=== PATIENT | female | born 1995 | race Caucasian/White ===

== ENCOUNTER 2019-11-24 13:17 | Inpatient (IN) | payer OTHER ==
--- NOTE | 2019-11-24 13:54 | BHS.RME ---
Substance Use & Tx History - Substance Use History Opiates (Heroin) Substance amount: 1 bundle Frequency of use: Daily Substance route: Inhalation (ex: sniffing or snorting) Date of Last Use: 11/23/19 Alcohol Substance amount: 3 strawberitas daily, ~3 ounces tequilla. Vodka 4 ounces 2 days per week Frequency of use: Daily Substance route: Oral Date of Last Use: 11/24/19 Benzodiazepines Substance amount: Xanax 2 x 2 mg Frequency of use: Daily Substance route: Oral Date of Last Use: 11/20/19 Cocaine (Crack) Substance amount: 1 gram Frequency of use: Less than 3 times per week Substance route: Smoking Date of Last Use: 10/26/19 Cocaine (Powder) Frequency of use: Less than 5 times a year Substance route: Injection (ex: intravenous or skin popping) Date of Last Use: 05/28/19 Physical/Psych/Mental Status - Behavior General Behavior: Increased activity (restlessness, agitation) Eye Contact: Decreased - Cooperativeness Cooperativeness: Cooperative - Thinking Thought Processes: Tight Thought content: Future oriented - Physical Health Problems Is patient presently having any pain?: No Does patient presently have any injuries (include location): No Does patient currently have a fever: No Is patient : No COWS - Scale Resting Pulse: 1= [place] 81-100 Sweatin=Flushed/Facial Moisture Restless Observation: 1= Difficult to Sit Still Pupil Size: 2= Moderately Dilated Bone or Joint Aches: 0= None Runny Nose/ Eye Tearin= Runny Nose/Eyes GI Upset > 30mins: 2= Nausea/Diarrhea Tremor Observation: 2= Slight Tremor Visible Yawning Observation: 0= None Anxiety or Irritability: 1=Feels Anxious/Irritable Goose Flesh Skin: 0=Smooth Skin COWS Score: 13 CIWA Nausea/Vomitin Muscle Tremors: 4-Moderate,w/Arms Extend Anxiety: 3 Agitation: 1-Slight > Activity Paroxysmal Sweats: 4-Forehead w/Sweat Beads Orientation: 0-Oriented Tacttile Disturbances: 0-None Auditory Disturbances: 1-Very Mild Visual Disturbances: 2-Mild Sensitivity Headache: 1-Very Mild CIWA-Ar Total Score: 19
[2019-11-24 14:41] VITALS: BMI 30.5
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
[2019-11-24] MEDS ORDERED: MENTHOL/PHENOL 1 EACH UD MM PRN (15:08)
[2019-11-24] MEDS ORDERED: IBUPROFEN 400 MG TABLET (FP) PO PRN (15:08)
[2019-11-24] MEDS ORDERED: ONDANSETRON *ODT* 4 MG TABLET SL ONE (15:08)
[2019-11-24] MEDS ORDERED: MAG HYDROX/AL HYDROX/SIMETH 30 ML UNIT-DOSE CUP PO PRN (15:08)
[2019-11-24] MEDS ORDERED: ACETAMINOPHEN 325 MG TABLET (FP) PO PRN ×2 (15:08)
[2019-11-24] MEDS ORDERED: MAGNESIUM CITRATE 300 ML BOTTLE PO PRN (15:08)
[2019-11-24] MEDS ORDERED: BISMUTH SUBSALICYLATE 262 MG/15 ML BTL PO PRN (15:08)
[2019-11-24] MEDS ORDERED: METHADONE HCL 10 MG TABLET (FOR DETOX USE ONLY) PO ONE (15:08)
[2019-11-24] MEDS ORDERED: chlordiazePOXIDE HCL 25 MG CAPSULE PO PRN (15:08)
[2019-11-24] MEDS ORDERED: MAGNESIUM HYDROX 2400MG/30ML ORAL SUSPENSION 30 ML CUP PO PRN (15:08)
[2019-11-24] MEDS: NICOTINE 21 MG/24 HOURS TOPICAL PATCH TD SCH (16:02)
[2019-11-24] MEDS: chlordiazePOXIDE HCL 25 MG CAPSULE PO SCH ×2 (16:46→22:19)
[2019-11-24] MEDS: NICOTINE POLACRILEX 2 MG GUM BUC PRN (16:48)
[2019-11-24] MEDS: hydrOXYzine PAMOATE 25 MG CAPSULE (FP) PO SCH ×2 (18:18→22:19)
[2019-11-24] MEDS: THIAMINE HCL 100 MG TABLET (FP) PO SCH (22:19)
[2019-11-24] MEDS: MELATONIN 5 MG TABLETS PO SCH (22:19)
[2019-11-25] MEDS: chlordiazePOXIDE HCL 25 MG CAPSULE PO SCH ×4 (06:27→22:13)
[2019-11-25] MEDS: hydrOXYzine PAMOATE 25 MG CAPSULE (FP) PO SCH ×2 (06:27→10:23)
[2019-11-25] MEDS ORDERED: METHADONE HCL 5 MG TABLET (FOR DETOX USE ONLY) ONE (09:22)
[2019-11-25] MEDS ORDERED: METHADONE HCL 10 MG TABLET (FOR DETOX USE ONLY) ONE (09:23)
[2019-11-25] MEDS ORDERED: METHADONE (DETOX) 20 MG, METHADONE (DETOX) 5 MG PO ONE (10:00)
[2019-11-25] MEDS: PRENATAL VITAMINS W/ FOLIC ACID TABLET (FP) PO SCH (10:22)
[2019-11-25 10:23] LABS: HEMATOCRIT 42.4 % (32.4-45.2); HEMOGLOBIN 14.2 GM/dL (10.7-15.3); MCHC 33.5 g/dl (32.0-36.0); MEAN CELL VOLUME 89.6 fl (80-96); PLATELET COUNT 325 K/MM3 (134-434); RBC 4.73 M/mm3 (3.60-5.2); RDW 15.1 % (11.6-15.6); WHITE BLOOD COUNT 6.2 K/mm3 (4.0-10.0)
[2019-11-25] MEDS: NICOTINE POLACRILEX 2 MG GUM BUC PRN ×3 (10:24→17:53)
[2019-11-25] MEDS: NICOTINE 21 MG/24 HOURS TOPICAL PATCH TD SCH (10:24)
[2019-11-25 10:28] LABS: ALBUMIN 3.4 g/dl (3.4-5.0); ALK PHOS 82 U/L (45-117); ANION GAP 7 MMOL/L (8-16); BILIRUBIN,TOTAL < 0.1 mg/dL (0.2-1); BLOOD UREA NITROGEN 13.3 mg/dL (7-18); CALCIUM 8.9 mg/dL (8.5-10.1); CHLORIDE 105 mmol/L (98-107); CO2 29 mmol/L (21-32); CREATININE 0.8 mg/dL (0.55-1.3); GLUCOSE,RANDOM 61 mg/dL (74-106); SGOT/AST 11 U/L (15-37); SGPT/ALT 16 U/L (13-61); SODIUM 141 mmol/L (136-145)
--- NOTE | 2019-11-25 10:46 | PN ---
[facility] CIWA - CIWA Score Nausea/Vomitin-No Nausea/No Vomiting Muscle Tremors: 3 Anxiety: 3 Agitation: 3 Paroxysmal Sweats: 3 Orientation: 0-Oriented Tacttile Disturbances: 0-None Auditory Disturbances: 0-None Visual Disturbances: 0-None Headache: 0-None Present CIWA-Ar Total Score: 12 [facility] COWS - Scale Resting Pulse: 1= [place] 81-100 Sweatin= Chills/Flushing Restless Observation: 1= Difficult to Sit Still Pupil Size: 0= Normal to Room Light Bone or Joint Aches: 1= Mild Discomfort Runny Nose/ Eye Tearin= Runny Nose/Eyes GI Upset > 30mins: 0= None Tremor Observation of Outstretched Hands: 2= Slight Tremor Visible Yawning Observation: 1= 1-2x During Session Anxiety or Irritability: 2=Irritable/Anxious Goose Flesh Skin: 0=Smooth Skin COWS Score: 11 [facility] Progress Note (SOAP) Subjective: sweats shakes interrupted sleep anxious Objective: 11/25/19 10:45 Vital Signs Temperature 97.9 F 11/25/19 08:34 Pulse Rate 84 11/25/19 08:34 Respiratory Rate 18 11/25/19 08:34 Blood Pressure 114/67 11/25/19 08:34 O2 Sat by Pulse Oximetry (%) Laboratory Tests 11/24/19 11/25/19 11/25/19 14:29 07:30 07:30 WBC 6.2 RBC 4.73 Hgb 14.2 Hct 42.4 MCV 89.6 MCH 30.0 MCHC 33.5 RDW 15.1 Plt Count 325 MPV 8.0 Sodium 141 Potassium 4.0 Chloride 105 Carbon Dioxide 29 Anion Gap 7 L BUN 13.3 Creatinine 0.8 Est GFR (CKD-EPI)AfAm 120.44 Est GFR (CKD-EPI)NonAf 103.92 Random Glucose 61 L Calcium 8.9 Total Bilirubin < 0.1 L AST 11 L ALT 16 Alkaline Phosphatase 82 Total Protein 7.0 Albumin 3.4 POC Urine HCG, Qual Negative aaox3 ambulating no acute distress Assessment: 11/25/19 10:46 withdrawals Plan: continue detox increase fluids
[2019-11-25] MEDS: hydrOXYzine PAMOATE 25 MG CAPSULE (FP) PO PRN (13:36)
[2019-11-25] MEDS: THIAMINE HCL 100 MG TABLET (FP) PO SCH (21:35)
[2019-11-25] MEDS: cloNIDine HCL 0.1 MG TABLET PO PRN ×2 (21:37→22:09)
[2019-11-25] MEDS: MELATONIN 5 MG TABLETS PO SCH (22:09)
[2019-11-25] MEDS: ONDANSETRON *ODT* 4 MG TABLET SL PRN (22:30)
[2019-11-26] MEDS: chlordiazePOXIDE HCL 25 MG CAPSULE PO SCH ×4 (06:00→22:08)
[2019-11-26] MEDS ORDERED: METHADONE HCL 10 MG TABLET (FOR DETOX USE ONLY) PO ONE (10:00)
[2019-11-26] MEDS: PRENATAL VITAMINS W/ FOLIC ACID TABLET (FP) PO SCH (10:34)
[2019-11-26] MEDS: NICOTINE POLACRILEX 2 MG GUM BUC PRN ×4 (10:35→22:10)
[2019-11-26] MEDS: NICOTINE 21 MG/24 HOURS TOPICAL PATCH TD SCH (10:35)
[2019-11-26] MEDS: ONDANSETRON *ODT* 4 MG TABLET SL PRN (12:44)
[2019-11-26] MEDS: hydrOXYzine PAMOATE 25 MG CAPSULE (FP) PO PRN (12:44)
--- NOTE | 2019-11-26 12:53 | PN ---
[facility] CIWA - CIWA Score Nausea/Vomitin-No Nausea/No Vomiting Muscle Tremors: 3 Anxiety: 2 Agitation: 2 Paroxysmal Sweats: 3 Orientation: 0-Oriented Tacttile Disturbances: 0-None Auditory Disturbances: 0-None Visual Disturbances: 0-None Headache: 0-None Present CIWA-Ar Total Score: 10 [facility] COWS - Scale Resting Pulse: 1= [place] 81-100 Sweatin= Chills/Flushing Restless Observation: 1= Difficult to Sit Still Pupil Size: 0= Normal to Room Light Bone or Joint Aches: 1= Mild Discomfort Runny Nose/ Eye Tearin= None GI Upset > 30mins: 0= None Tremor Observation of Outstretched Hands: 1= Tremor [place], Not Seen Yawning Observation: 1= 1-2x During Session Anxiety or Irritability: 2=Irritable/Anxious Goose Flesh Skin: 0=Smooth Skin COWS Score: 8 [facility] Progress Note (SOAP) Subjective: sweats nausea hot/cold chills body aches dry skin Objective: 11/26/19 12:54 Vital Signs Temperature 97.9 F 11/26/19 08:41 Pulse Rate 87 11/26/19 08:41 Respiratory Rate 17 11/26/19 08:41 Blood Pressure 128/71 11/26/19 08:41 O2 Sat by Pulse Oximetry (%) Laboratory Tests 11/24/19 11/25/19 11/25/19 14:29 07:30 07:30 WBC 6.2 RBC 4.73 Hgb 14.2 Hct 42.4 MCV 89.6 MCH 30.0 MCHC 33.5 RDW 15.1 Plt Count 325 MPV 8.0 Sodium 141 Potassium 4.0 Chloride 105 Carbon Dioxide 29 Anion Gap 7 L BUN 13.3 Creatinine 0.8 Est GFR (CKD-EPI)AfAm 120.44 Est GFR (CKD-EPI)NonAf 103.92 Random Glucose 61 L Calcium 8.9 Total Bilirubin < 0.1 L AST 11 L ALT 16 Alkaline Phosphatase 82 Total Protein 7.0 Albumin 3.4 POC Urine HCG, Qual Negative RPR Titer 11/25/19 07:30 WBC RBC Hgb Hct MCV MCH MCHC RDW Plt Count MPV Sodium Potassium Chloride Carbon Dioxide Anion Gap BUN Creatinine Est GFR (CKD-EPI)AfAm Est GFR (CKD-EPI)NonAf Random Glucose Calcium Total Bilirubin AST ALT Alkaline Phosphatase Total Protein Albumin POC Urine HCG, Qual RPR Titer Nonreactive aaox3 ambulating no acute distress Assessment: 11/26/19 12:55 withdrawals Plan: continue detox zofran sl prn aveeno soap
[2019-11-26] MEDS ORDERED: COLLOIDAL OATMEAL 1 BAR EACH TP ONE (14:00)
[2019-11-26] MEDS: THIAMINE HCL 100 MG TABLET (FP) PO SCH (22:08)
[2019-11-26] MEDS: MELATONIN 5 MG TABLETS PO SCH (22:08)
[2019-11-26] MEDS: METHOCARBAMOL 500 MG TABLET PO PRN (22:08)
[2019-11-27] MEDS ORDERED: chlordiazePOXIDE HCL 10 MG CAPSULE PO PRN
[2019-11-27] MEDS: chlordiazePOXIDE HCL 10 MG CAPSULE PO SCH ×4 (07:57→22:11)
[2019-11-27] MEDS ORDERED: METHADONE HCL 10 MG TABLET (FOR DETOX USE ONLY) ONE (09:29)
[2019-11-27] MEDS ORDERED: METHADONE HCL 5 MG TABLET (FOR DETOX USE ONLY) ONE (09:29)
[2019-11-27] MEDS ORDERED: METHADONE (DETOX) 10 MG, METHADONE (DETOX) 5 MG PO ONE (10:00)
--- NOTE | 2019-11-27 10:32 | PN ---
[facility] CIWA - CIWA Score Nausea/Vomitin-No Nausea/No Vomiting Muscle Tremors: 1-None Visible, but [place] Anxiety: 1-Mildly Anxious Agitation: 1-Slight > Activity Paroxysmal Sweats: 1-Minimal Palms Moist Orientation: 0-Oriented Tacttile Disturbances: 0-None Auditory Disturbances: 0-None Visual Disturbances: 0-None Headache: 0-None Present CIWA-Ar Total Score: 4 S COWS - Scale Resting Pulse: 1= [place] 81-100 Sweatin= Chills/Flushing Restless Observation: 0= Sits Still Pupil Size: 0= Normal to Room Light Bone or Joint Aches: 1= Mild Discomfort Runny Nose/ Eye Tearin= None GI Upset > 30mins: 0= None Tremor Observation of Outstretched Hands: 1= Tremor [place], Not Seen Yawning Observation: 0= None Anxiety or Irritability: 1=Feels Anxious/Irritable Goose Flesh Skin: 0=Smooth Skin COWS Score: 5 [facility] Progress Note (SOAP) Subjective: anxiety interrupted sleep Objective: 11/27/19 10:32 Vital Signs Temperature 97.7 F 11/27/19 05:00 Pulse Rate 67 11/27/19 05:00 Respiratory Rate 16 11/27/19 05:00 Blood Pressure 114/71 11/27/19 05:00 O2 Sat by Pulse Oximetry (%) aaox3 ambulating no acute distress Assessment: 11/27/19 10:32 mild withdrawals Plan: continue detox
[2019-11-27] MEDS: PRENATAL VITAMINS W/ FOLIC ACID TABLET (FP) PO SCH (10:44)
[2019-11-27] MEDS: NICOTINE POLACRILEX 2 MG GUM BUC PRN ×5 (10:44→22:13)
[2019-11-27] MEDS: NICOTINE 21 MG/24 HOURS TOPICAL PATCH TD SCH (10:44)
[2019-11-27] MEDS: METHOCARBAMOL 500 MG TABLET PO PRN ×2 (10:47→20:10)
[2019-11-27] MEDS: hydrOXYzine PAMOATE 25 MG CAPSULE (FP) PO PRN ×2 (12:55→22:11)
[2019-11-27] MEDS: MELATONIN 5 MG TABLETS PO SCH (22:11)
[2019-11-27] MEDS: THIAMINE HCL 100 MG TABLET (FP) PO SCH (22:11)
[2019-11-28] MEDS ORDERED: chlordiazePOXIDE HCL 10 MG CAPSULE PO SCH (05:00)
[2019-11-28] MEDS: NICOTINE POLACRILEX 2 MG GUM BUC PRN (06:03)
[2019-11-28] MEDS: METHOCARBAMOL 500 MG TABLET PO PRN (06:03)
[2019-11-28] MEDS: hydrOXYzine PAMOATE 25 MG CAPSULE (FP) PO PRN (06:03)
[2019-11-28] MEDS ORDERED: METHADONE HCL 10 MG TABLET (FOR DETOX USE ONLY) PO ONE (10:00)
[2019-11-28 11:38] VITALS: BP 132/75; PULSE 98; TEMP 98.1
[2019-11-29] MEDS ORDERED: chlordiazePOXIDE HCL 10 MG CAPSULE PO ONE (05:00)
[2019-11-29] MEDS ORDERED: METHADONE HCL 5 MG TABLET (FOR DETOX USE ONLY) PO ONE (06:00)
== END 2019-11-28 10:16 | disposition home or self-care (01) | DRG 773 ==
LOC: YASAS 13:17 → Y6N 14:53
PROVIDERS: ADMIT Allergy & Immunology; ATTEND Allergy & Immunology
PROC: HZ2ZZZZ Detoxification Services for Substance Abuse Treatment (ICD-10-PCS; principal; 2019-11-24)
DX: F10.230 Alcohol dependence with withdrawal, uncomplicated (principal); F11.20 Opioid dependence, uncomplicated; F14.20 Cocaine dependence, uncomplicated; F13.230 Sedative, hypnotic or anxiolytic dependence with withdrawal, uncomplicated; F15.10 Other stimulant abuse, uncomplicated; F43.10 Post-traumatic stress disorder, unspecified; F32.9 Major depressive disorder, single episode, unspecified; J45.909 Unspecified asthma, uncomplicated; Z86.69 Personal history of other diseases of the nervous system and sense organs
CPT/HCPCS: 36415; 80053; 81025; 85027; 86593; J0735; Q0162

== ENCOUNTER 2021-08-20 14:43 | Inpatient (IN) | payer OTHER ==
[2021-08-20 15:26] VITALS: BMI 27.4
[2021-08-20] MEDS ORDERED: ACETAMINOPHEN 325 MG TABLET (FP) PO PRN (19:12)
[2021-08-20] MEDS ORDERED: MAGNESIUM CITRATE 300 ML BOTTLE PO PRN (19:12)
[2021-08-20] MEDS ORDERED: ONDANSETRON *ODT* 4 MG TABLET SL PRN (19:12)
[2021-08-20] MEDS ORDERED: MENTHOL/PHENOL 1 EACH UD MM PRN (19:12)
[2021-08-20] MEDS ORDERED: MAG HYDROX/AL HYDROX/SIMETH 30 ML UNIT-DOSE CUP PO PRN (19:12)
[2021-08-20] MEDS ORDERED: cloNIDine HCL 0.1 MG TABLET PO PRN (19:12)
[2021-08-20] MEDS ORDERED: BISMUTH SUBSALICYLATE 524 MG/30 ML PO PRN (19:12)
[2021-08-20] MEDS ORDERED: IBUPROFEN 400 MG TABLET (FP) PO PRN (19:12)
[2021-08-20] MEDS ORDERED: MAGNESIUM HYDROX 2400MG/30ML ORAL SUSPENSION 30 ML CUP PO PRN (19:12)
[2021-08-20] MEDS ORDERED: methaDONE HCL 10 MG TABLET (FOR DETOX USE ONLY) PO ONE (19:12)
[2021-08-20] MEDS ORDERED: LORazepam 2 MG TABLET PO ONE (19:16)
[2021-08-20] MEDS ORDERED: methaDONE HCL 10 MG TABLET (FOR DETOX USE ONLY) ONE (19:30)
[2021-08-20] MEDS: BACITRACIN 15 GM TUBE TOPICAL OINTMENT TP SCH (22:17)
[2021-08-20] MEDS: THIAMINE HCL 100 MG TABLET (FP) PO SCH (22:18)
[2021-08-20] MEDS: MELATONIN 5 MG TABLETS PO PRN (22:18)
[2021-08-20] MEDS: LORazepam 2 MG TABLET PO SCH (22:20)
[2021-08-21] MEDS: LORazepam 2 MG TABLET PO SCH ×4 (06:07→22:02)
[2021-08-21] MEDS ORDERED: methaDONE HCL 10 MG TABLET (FOR DETOX USE ONLY) ONE (08:29)
[2021-08-21] MEDS: LORazepam 1 MG TABLET PO PRN ×2 (08:48→13:01)
[2021-08-21] MEDS ORDERED: ALBUTEROL SO4 HFA INHALER IH PRN (09:19)
[2021-08-21] MEDS: PRENATAL VITAMINS W/ FOLIC ACID TABLET (FP) PO SCH (10:42)
[2021-08-21] MEDS ORDERED: BACITRACIN 0.9 GM PACKET ONE ×2 (11:06→21:35)
[2021-08-21] MEDS: NICOTINE POLACRILEX 4 MG GUM BUC PRN ×2 (11:07→19:46)
[2021-08-21] MEDS: BACITRACIN 15 GM TUBE TOPICAL OINTMENT TP SCH ×2 (11:07→22:02)
[2021-08-21] MEDS: METHOCARBAMOL 500 MG TABLET PO PRN (13:01)
[2021-08-21] MEDS: hydrOXYzine PAMOATE 25 MG CAPSULE (FP) PO PRN (13:01)
[2021-08-21] MEDS: NICOTINE 10 MG CARTRIDGE (INHALER) IH PRN (20:25)
[2021-08-21] MEDS: ACETAMINOPHEN 325 MG TABLET (FP) PO PRN (20:59)
[2021-08-21] MEDS: MELATONIN 5 MG TABLETS PO PRN (22:01)
[2021-08-21] MEDS: THIAMINE HCL 100 MG TABLET (FP) PO SCH (22:01)
[2021-08-22] MEDS: LORazepam 1 MG TABLET PO SCH ×4 (06:24→22:22)
[2021-08-22] MEDS ORDERED: methaDONE HCL 10 MG TABLET (FOR DETOX USE ONLY) PO ONE (10:00)
[2021-08-22] MEDS: BACITRACIN 15 GM TUBE TOPICAL OINTMENT TP SCH ×2 (10:15→22:21)
[2021-08-22] MEDS: PRENATAL VITAMINS W/ FOLIC ACID TABLET (FP) PO SCH (10:17)
[2021-08-22] MEDS: NICOTINE 10 MG CARTRIDGE (INHALER) IH PRN ×3 (10:17→23:02)
[2021-08-22] MEDS: NICOTINE POLACRILEX 4 MG GUM BUC PRN ×4 (10:17→23:01)
[2021-08-22] MEDS: hydrOXYzine PAMOATE 25 MG CAPSULE (FP) PO PRN (10:17)
[2021-08-22] MEDS: METHOCARBAMOL 500 MG TABLET PO PRN ×2 (10:18→22:23)
[2021-08-22] MEDS ORDERED: ALBUTEROL SO4 HFA INHALER IH PRN (10:27)
[2021-08-22] MEDS: NICOTINE 21 MG/24 HOURS TOPICAL PATCH TD SCH (10:53)
[2021-08-22 10:55] LABS: HEMOGLOBIN 14.2 GM/dL (10.7-15.3); MCH 30.2 pg (25.7-33.7); MCHC 33.7 g/dl (32.0-36.0); MEAN CELL VOLUME 89.7 fl (80-96); MEAN PLT VOLUME 7.6 fl (7.5-11.1); PLATELET COUNT 376 10^3/uL (134-434); RBC 4.69 M/mm3 (3.60-5.2); RDW 14.3 % (11.6-15.6); WHITE BLOOD COUNT 8.1 K/mm3 (4.0-10.0)
[2021-08-22 11:42] LABS: BLOOD UREA NITROGEN 16.3 mg/dL (7-18); CALCIUM 9.3 mg/dL (8.5-10.1)
[2021-08-22 11:43] LABS: ALBUMIN 3.7 g/dl (3.4-5.0)
[2021-08-22 11:46] LABS: CREATININE 0.8 mg/dL (0.55-1.3)
[2021-08-22 11:47] LABS: BILIRUBIN,TOTAL 0.3 mg/dL (0.2-1); TOT PROT 7.8 g/dl (6.4-8.2)
[2021-08-22 14:50] LABS: HIV INTERPRETATION NEGATIVE (NEGATIVE)
[2021-08-22] MEDS: ACETAMINOPHEN 325 MG TABLET (FP) PO PRN (17:36)
[2021-08-22] MEDS: THIAMINE HCL 100 MG TABLET (FP) PO SCH (22:21)
[2021-08-22] MEDS: MELATONIN 5 MG TABLETS PO PRN (22:22)
[2021-08-23] MEDS ORDERED: LORazepam 0.5 MG TABLET PO PRN
[2021-08-23] MEDS: hydrOXYzine PAMOATE 25 MG CAPSULE (FP) PO PRN (02:07)
[2021-08-23] MEDS: LORazepam 0.5 MG TABLET PO SCH ×4 (06:12→22:21)
[2021-08-23] MEDS ORDERED: methaDONE HCL 10 MG TABLET (FOR DETOX USE ONLY) ONE (08:53)
[2021-08-23] MEDS: NICOTINE POLACRILEX 4 MG GUM BUC PRN ×2 (09:50→22:20)
[2021-08-23] MEDS: NICOTINE 21 MG/24 HOURS TOPICAL PATCH TD SCH (10:10)
[2021-08-23] MEDS: PRENATAL VITAMINS W/ FOLIC ACID TABLET (FP) PO SCH (10:10)
[2021-08-23] MEDS: BACITRACIN 15 GM TUBE TOPICAL OINTMENT TP SCH ×2 (10:36→22:22)
[2021-08-23] MEDS ORDERED: COLLOIDAL OATMEAL 1 BAR EACH TP PRN (11:22)
[2021-08-23] MEDS: METHOCARBAMOL 500 MG TABLET PO PRN (17:28)
[2021-08-23] MEDS: MINERAL OIL/PETROLAT/WATER TOPICAL CREAM 113 GM JAR TP SCH (22:20)
[2021-08-23] MEDS: THIAMINE HCL 100 MG TABLET (FP) PO SCH (22:21)
[2021-08-23] MEDS: MELATONIN 5 MG TABLETS PO PRN (22:22)
[2021-08-24] MEDS: METHOCARBAMOL 500 MG TABLET PO PRN ×2 (00:25→06:24)
[2021-08-24] MEDS ORDERED: LORazepam 0.5 MG TABLET PO ONE (05:00)
[2021-08-24] MEDS: ACETAMINOPHEN 325 MG TABLET (FP) PO PRN (06:25)
[2021-08-24] MEDS ORDERED: methaDONE HCL 10 MG TABLET (FOR DETOX USE ONLY) PO ONE (10:00)
[2021-08-24] MEDS: MINERAL OIL/PETROLAT/WATER TOPICAL CREAM 113 GM JAR TP SCH (10:28)
[2021-08-24] MEDS: PRENATAL VITAMINS W/ FOLIC ACID TABLET (FP) PO SCH (10:28)
[2021-08-24] MEDS: NICOTINE 21 MG/24 HOURS TOPICAL PATCH TD SCH (10:28)
[2021-08-24] MEDS: BACITRACIN 15 GM TUBE TOPICAL OINTMENT TP SCH (10:28)
[2021-08-24 12:38] VITALS: BP 121/78; PULSE 90; TEMP 97.2
== END 2021-08-24 15:31 | disposition home or self-care (01) | DRG 773 ==
LOC: YASAS 14:43 → Y3N 19:10
PROVIDERS: ADMIT Allergy & Immunology; ATTEND Allergy & Immunology
PROC: HZ2ZZZZ Detoxification Services for Substance Abuse Treatment (ICD-10-PCS; principal; 2021-08-20)
DX: F11.23 Opioid dependence with withdrawal (principal); F14.20 Cocaine dependence, uncomplicated; F10.230 Alcohol dependence with withdrawal, uncomplicated; F12.20 Cannabis dependence, uncomplicated; F17.210 Nicotine dependence, cigarettes, uncomplicated; F42.4 Excoriation (skin-picking) disorder; J45.909 Unspecified asthma, uncomplicated; G47.30 Sleep apnea, unspecified
CPT/HCPCS: 36415; 80053; 81025; 85027; 86780; 87389; C9803; J0735; U0003; U0005

== ENCOUNTER 2021-12-19 12:10 | Inpatient (IN) | payer OTHER ==
[2021-12-19] MEDS ORDERED: MENTHOL/PHENOL 1 EACH UD MM PRN (12:42)
[2021-12-19] MEDS ORDERED: MAG HYDROX/AL HYDROX/SIMETH 30 ML UNIT-DOSE CUP PO PRN (12:42)
[2021-12-19] MEDS ORDERED: IBUPROFEN 400 MG TABLET (FP) PO PRN (12:42)
[2021-12-19] MEDS ORDERED: LOPERAMIDE HCL 2 MG CAPSULE PO PRN (12:42)
[2021-12-19] MEDS ORDERED: BISMUTH SUBSALICYLATE 524 MG/30 ML PO PRN (12:42)
[2021-12-19] MEDS ORDERED: ACETAMINOPHEN 325 MG TABLET (FP) PO PRN ×2 (12:42)
[2021-12-19] MEDS ORDERED: NICOTINE 10 MG CARTRIDGE (INHALER) IH PRN (12:42)
[2021-12-19] MEDS ORDERED: MAGNESIUM HYDROX 2400MG/30ML ORAL SUSPENSION 30 ML CUP PO PRN (12:42)
[2021-12-19] MEDS ORDERED: MAGNESIUM CITRATE 300 ML BOTTLE PO PRN (12:42)
[2021-12-19] MEDS ORDERED: ONDANSETRON *ODT* 4 MG TABLET SL PRN (12:42)
[2021-12-19] MEDS ORDERED: chlordiazePOXIDE HCL 25 MG CAPSULE PO PRN (12:42)
[2021-12-19] MEDS ORDERED: ALBUTEROL SO4 HFA INHALER IH PRN (12:45)
[2021-12-19 12:56] VITALS: BMI 34.2
[2021-12-19] MEDS: hydrOXYzine PAMOATE 25 MG CAPSULE (FP) PO SCH ×3 (14:19→23:12)
[2021-12-19] MEDS: METHOCARBAMOL 500 MG TABLET PO PRN (14:19)
[2021-12-19] MEDS: PRENATAL VITAMINS W/ FOLIC ACID TABLET (FP) PO SCH (14:19)
[2021-12-19] MEDS: NICOTINE 21 MG/24 HOURS TOPICAL PATCH TD SCH (14:29)
[2021-12-19 16:39] LABS: CALCIUM 8.9 mg/dL (8.5-10.1); HEMATOCRIT 42.9 % (32.4-45.2); HEMOGLOBIN 14.4 GM/dL (10.7-15.3); MCH 30.7 pg (25.7-33.7); MCHC 33.6 g/dl (32.0-36.0); MEAN CELL VOLUME 91.4 fl (80-96); PLATELET COUNT 334 10^3/uL (134-434); RBC 4.69 M/mm3 (3.60-5.2); RDW 13.6 % (11.6-15.6)
[2021-12-19 16:40] LABS: ALBUMIN 4.2 g/dl (3.4-5.0); BLOOD UREA NITROGEN 12.3 mg/dL (7-18)
[2021-12-19 16:43] LABS: CREATININE 0.8 mg/dL (0.55-1.3)
[2021-12-19 16:45] LABS: BILIRUBIN,TOTAL 0.5 mg/dL (0.2-1); TOT PROT 7.8 g/dl (6.4-8.2)
[2021-12-19] MEDS: chlordiazePOXIDE HCL 25 MG CAPSULE PO SCH ×2 (17:58→22:29)
[2021-12-19] MEDS: THIAMINE HCL 100 MG TABLET (FP) PO SCH (22:29)
[2021-12-19] MEDS: MELATONIN 5 MG TABLETS PO SCH (22:29)
[2021-12-20] MEDS: hydrOXYzine PAMOATE 25 MG CAPSULE (FP) PO SCH ×5 (06:24→22:18)
[2021-12-20] MEDS: chlordiazePOXIDE HCL 25 MG CAPSULE PO SCH ×4 (06:24→22:18)
[2021-12-20] MEDS: PRENATAL VITAMINS W/ FOLIC ACID TABLET (FP) PO SCH (10:23)
[2021-12-20] MEDS: METHOCARBAMOL 500 MG TABLET PO PRN ×2 (10:24→18:06)
[2021-12-20] MEDS: NICOTINE 21 MG/24 HOURS TOPICAL PATCH TD SCH (10:25)
[2021-12-20] MEDS ORDERED: methaDONE HCL 10 MG TABLET PO ONE (10:58)
[2021-12-20] MEDS ORDERED: methaDONE 80 MG, methaDONE 10 MG PO ONE (11:00)
[2021-12-20] MEDS ORDERED: methaDONE HCL 10 MG TABLET ONE (11:26)
[2021-12-20] MEDS ORDERED: methaDONE HCL 40 MG DISPERSABLE TABLET ONE (11:27)
[2021-12-20] MEDS ORDERED: COLLOIDAL OATMEAL 1 BAR EACH TP PRN (15:36)
[2021-12-20] MEDS: THIAMINE HCL 100 MG TABLET (FP) PO SCH (22:18)
[2021-12-20] MEDS: MELATONIN 5 MG TABLETS PO SCH (22:18)
[2021-12-21] MEDS ORDERED: methaDONE HCL 40 MG DISPERSABLE TABLET ONE (05:07)
[2021-12-21] MEDS ORDERED: methaDONE HCL 10 MG TABLET ONE (05:07)
[2021-12-21] MEDS: chlordiazePOXIDE HCL 25 MG CAPSULE PO SCH ×3 (05:36→17:38)
[2021-12-21] MEDS: hydrOXYzine PAMOATE 25 MG CAPSULE (FP) PO SCH ×4 (05:36→17:38)
[2021-12-21] MEDS ORDERED: methaDONE 80 MG, methaDONE 10 MG PO SCH (06:00)
[2021-12-21] MEDS ORDERED: methaDONE HCL 10 MG TABLET PO SCH (06:00)
[2021-12-21 06:06] LABS: SARS-CoV-2 NAA Not Detected (Not Detected)
[2021-12-21] MEDS: METHOCARBAMOL 500 MG TABLET PO PRN ×2 (10:16→17:38)
[2021-12-21] MEDS: NICOTINE 21 MG/24 HOURS TOPICAL PATCH TD SCH (10:16)
[2021-12-21] MEDS: PRENATAL VITAMINS W/ FOLIC ACID TABLET (FP) PO SCH (10:16)
[2021-12-21 18:51] VITALS: BP 125/80; PULSE 84; TEMP 97.7
[2021-12-22] MEDS ORDERED: chlordiazePOXIDE HCL 10 MG CAPSULE PO PRN
[2021-12-22] MEDS ORDERED: chlordiazePOXIDE HCL 10 MG CAPSULE PO SCH (05:00)
[2021-12-23] MEDS ORDERED: chlordiazePOXIDE HCL 10 MG CAPSULE PO SCH (05:00)
[2021-12-24] MEDS ORDERED: chlordiazePOXIDE HCL 10 MG CAPSULE PO ONE (05:00)
== END 2021-12-21 19:47 | disposition left against medical advice (07) | DRG 770 ==
LOC: YASAS 12:10 → Y6N 13:39
PROVIDERS: ADMIT Allergy & Immunology; ATTEND Allergy & Immunology
PROC: HZ2ZZZZ Detoxification Services for Substance Abuse Treatment (ICD-10-PCS; principal; 2021-12-19)
DX: F10.230 Alcohol dependence with withdrawal, uncomplicated (principal); F11.20 Opioid dependence, uncomplicated; F14.20 Cocaine dependence, uncomplicated; F12.20 Cannabis dependence, uncomplicated; F16.10 Hallucinogen abuse, uncomplicated; F17.210 Nicotine dependence, cigarettes, uncomplicated; F32.A Depression, unspecified; F43.10 Post-traumatic stress disorder, unspecified; F19.282 Other psychoactive substance dependence with psychoactive substance-induced sleep disorder; F19.24 Other psychoactive substance dependence with psychoactive substance-induced mood disorder; F19.280 Other psychoactive substance dependence with psychoactive substance-induced anxiety disorder; F42.4 Excoriation (skin-picking) disorder; J45.909 Unspecified asthma, uncomplicated; G47.30 Sleep apnea, unspecified; E66.9 Obesity, unspecified; Z68.34 Body mass index [BMI] 34.0-34.9, adult; Z62.810 Personal history of physical and sexual abuse in childhood; Z56.0 Unemployment, unspecified
CPT/HCPCS: 36415; 80053; 81025; 85027; 86780; 87811; C9803-CS; U0003; U0005

== ENCOUNTER 2022-06-10 12:04 | Inpatient (IN) | payer OTHER ==
[2022-06-10 12:54] VITALS: BMI 27.8
[2022-06-10] MEDS ORDERED: LOPERAMIDE HCL 2 MG CAPSULE PO PRN (13:40)
[2022-06-10] MEDS ORDERED: hydrOXYzine PAMOATE 25 MG CAPSULE (FP) PO PRN (13:40)
[2022-06-10] MEDS ORDERED: MELATONIN 5 MG TABLETS PO PRN (13:40)
[2022-06-10] MEDS ORDERED: IBUPROFEN 600 MG TABLET (FP) PO PRN (13:40)
[2022-06-10] MEDS ORDERED: MAG HYDROX/AL HYDROX/SIMETH 30 ML UNIT-DOSE CUP PO PRN (13:40)
[2022-06-10] MEDS ORDERED: IBUPROFEN 400 MG TABLET (FP) PO PRN (13:40)
[2022-06-10] MEDS ORDERED: MAGNESIUM CITRATE 300 ML BOTTLE PO PRN (13:40)
[2022-06-10] MEDS ORDERED: BENZOCAINE/MENTHOL (CHLORASEPTIC ) LOZENGE MM PRN (13:40)
[2022-06-10] MEDS ORDERED: ACETAMINOPHEN 325 MG TABLET (FP) PO PRN ×2 (13:40)
[2022-06-10] MEDS ORDERED: P-EPHED 60MG/TRIPROLIDI 2.5MG TABLET PO PRN (13:40)
[2022-06-10] MEDS ORDERED: BISMUTH SUBSALICYLATE 524 MG/30 ML PO PRN (13:40)
[2022-06-10] MEDS ORDERED: ONDANSETRON *ODT* 4 MG TABLET SL PRN (13:40)
[2022-06-10] MEDS ORDERED: MAGNESIUM HYDROX 2400MG/30ML ORAL SUSPENSION 30 ML CUP PO PRN (13:40)
[2022-06-10] MEDS ORDERED: guaiFENesin 200 MG/10 ML 10 ML UNIT-DOSE CUPS PO PRN (13:40)
[2022-06-10] MEDS ORDERED: NICOTINE POLACRILEX 2 MG GUM BUC PRN (13:40)
[2022-06-10] MEDS ORDERED: DICYCLOMINE HCL 10 MG CAPSULE PO PRN (13:40)
[2022-06-10] MEDS ORDERED: METHOCARBAMOL 500 MG TABLET PO PRN (13:40)
[2022-06-10] MEDS ORDERED: NALOXONE HCL (KLOXXADO) 8 MG SPRAY NS PRN (13:40)
[2022-06-10] MEDS ORDERED: cloNIDine HCL 0.1 MG TABLET PO PRN (13:42)
[2022-06-10] MEDS ORDERED: diazePAM 5 MG TABLET PO PRN (13:42)
[2022-06-10] MEDS: diazePAM 5 MG TABLET PO SCH ×2 (16:45→22:04)
[2022-06-10] MEDS ORDERED: methaDONE HCL 10 MG TABLET (FOR DETOX USE ONLY) PO ONE (17:00)
[2022-06-10] MEDS ORDERED: THIAMINE HCL 100 MG TABLET (FP) PO SCH (22:00)
[2022-06-11] MEDS: diazePAM 5 MG TABLET PO SCH (05:17)
[2022-06-11] MEDS ORDERED: chlordiazePOXIDE HCL 25 MG CAPSULE PO PRN (08:56)
[2022-06-11] MEDS ORDERED: PRENATAL VITAMINS W/ FOLIC ACID TABLET (FP) PO SCH (10:00)
[2022-06-11] MEDS ORDERED: chlordiazePOXIDE HCL 25 MG CAPSULE PO SCH (11:00)
[2022-06-11 17:17] VITALS: BP 124/81; PULSE 86; RESP 18; TEMP 96.2
[2022-06-12] MEDS ORDERED: diazePAM 5 MG TABLET PO SCH (06:00)
[2022-06-12] MEDS ORDERED: methaDONE HCL 10 MG TABLET (FOR DETOX USE ONLY) PO ONE (10:00)
[2022-06-13] MEDS ORDERED: chlordiazePOXIDE HCL 25 MG CAPSULE PO SCH (05:00)
[2022-06-13] MEDS ORDERED: diazePAM 5 MG TABLET PO SCH (06:00)
[2022-06-14] MEDS ORDERED: chlordiazePOXIDE HCL 10 MG CAPSULE PO PRN
[2022-06-14] MEDS ORDERED: chlordiazePOXIDE HCL 10 MG CAPSULE PO SCH (05:00)
[2022-06-14] MEDS ORDERED: diazePAM 5 MG TABLET PO ONE (06:00)
[2022-06-14] MEDS ORDERED: methaDONE HCL 10 MG TABLET (FOR DETOX USE ONLY) PO ONE (10:00)
[2022-06-15] MEDS ORDERED: chlordiazePOXIDE HCL 10 MG CAPSULE PO SCH (05:00)
[2022-06-16] MEDS ORDERED: chlordiazePOXIDE HCL 10 MG CAPSULE PO ONE (05:00)
== END 2022-06-11 16:55 | disposition left against medical advice (07) | DRG 770 ==
LOC: YASAS 12:04 → Y3N 16:01
PROVIDERS: ADMIT Allergy & Immunology; ATTEND Surgery
PROC: HZ2ZZZZ Detoxification Services for Substance Abuse Treatment (ICD-10-PCS; principal; 2022-06-10)
DX: F11.23 Opioid dependence with withdrawal (principal); F10.230 Alcohol dependence with withdrawal, uncomplicated; F14.20 Cocaine dependence, uncomplicated; F17.210 Nicotine dependence, cigarettes, uncomplicated; F41.9 Anxiety disorder, unspecified; F32.A Depression, unspecified; F43.10 Post-traumatic stress disorder, unspecified; G47.30 Sleep apnea, unspecified; Z28.310 Unvaccinated for COVID-19; Z28.9 Immunization not carried out for unspecified reason
CPT/HCPCS: 81025; C9803-CS; U0003; U0005

== ENCOUNTER 2023-02-28 13:57 | Inpatient (IN) | payer OTHER ==
[2023-02-28 14:23] VITALS: BMI 31.1
[2023-02-28] MEDS ORDERED: ALBUTEROL SO4 HFA INHALER IH PRN (17:35)
[2023-02-28] MEDS ORDERED: NICOTINE 10 MG CARTRIDGE (INHALER) IH PRN (18:26)
[2023-02-28] MEDS ORDERED: NALOXONE HCL 0.4 MG/ML VIAL IM PRN (18:26)
[2023-02-28] MEDS ORDERED: POLYETHYLENE GLYCOL (HEALTHYLAX) 3350 17 GM PACKET PO PRN (18:26)
[2023-02-28] MEDS ORDERED: LOPERAMIDE HCL 2 MG CAPSULE PO PRN (18:26)
[2023-02-28] MEDS ORDERED: BENZONATATE 200 MG CAPSULE PO PRN (18:26)
[2023-02-28] MEDS ORDERED: BENZOCAINE/MENTHOL (CHLORASEPTIC ) LOZENGE MM PRN (18:26)
[2023-02-28] MEDS ORDERED: ACETAMINOPHEN 325 MG TABLET (FP) PO PRN ×2 (18:26)
[2023-02-28] MEDS ORDERED: MAGNESIUM HYDROX 2400MG/30ML ORAL SUSPENSION 30 ML CUP PO PRN (18:26)
[2023-02-28] MEDS ORDERED: DICYCLOMINE HCL 10 MG CAPSULE PO PRN (18:26)
[2023-02-28] MEDS ORDERED: IBUPROFEN 400 MG TABLET (FP) PO PRN (18:26)
[2023-02-28] MEDS ORDERED: NICOTINE 7 MG/24 HOURS TOPICAL PATCH TD PRN (18:26)
[2023-02-28] MEDS ORDERED: IBUPROFEN 600 MG TABLET (FP) PO PRN (18:26)
[2023-02-28] MEDS ORDERED: NALOXONE HCL (KLOXXADO) 8 MG SPRAY NS PRN (18:26)
[2023-02-28] MEDS ORDERED: MAG HYDROX/AL HYDROX/SIMETH 30 ML UNIT-DOSE CUP PO PRN (18:26)
[2023-02-28] MEDS ORDERED: BISMUTH SUBSALICYLATE 524 MG/30 ML PO PRN (18:26)
[2023-02-28] MEDS ORDERED: guaiFENesin 600 MG TABLET.ER (FP) PO PRN (18:26)
[2023-02-28] MEDS ORDERED: P-EPHED 60MG/TRIPROLIDI 2.5MG TABLET PO PRN (18:26)
[2023-02-28] MEDS ORDERED: ONDANSETRON *ODT* 4 MG TABLET SL PRN (18:26)
[2023-02-28] MEDS: THIAMINE HCL 100 MG TABLET (FP) PO SCH (22:51)
[2023-02-28] MEDS: MELATONIN 5 MG TABLETS PO PRN (22:51)
[2023-02-28] MEDS: levETIRAcetam 500 MG TABLET (FP) PO SCH (22:51)
[2023-02-28] MEDS: ERYTHROMYCIN 0.5% OPHTHALMIC OINTMENT 3.5 GM TUBE OU SCH (22:52)
[2023-03-01] MEDS: hydrOXYzine PAMOATE 25 MG CAPSULE (FP) PO PRN (10:18)
[2023-03-01] MEDS: PRENATAL VITAMINS W/ FOLIC ACID TABLET (FP) PO SCH (10:18)
[2023-03-01] MEDS: levETIRAcetam 500 MG TABLET (FP) PO SCH ×2 (10:18→22:15)
[2023-03-01] MEDS ORDERED: LORazepam 1 MG TABLET PO PRN (10:24)
[2023-03-01] MEDS ORDERED: methaDONE HCL 10 MG TABLET (FOR DETOX USE ONLY) PO ONE (10:24)
[2023-03-01] MEDS: LORazepam 2 MG TABLET PO SCH ×3 (10:47→22:16)
[2023-03-01] MEDS: METHOCARBAMOL 500 MG TABLET PO PRN (10:49)
[2023-03-01 11:56] LABS: HEMATOCRIT 40.5 % (32.4-45.2); HEMOGLOBIN 13.1 GM/dL (10.7-15.3); MCH 29.5 pg (25.7-33.7); MCHC 32.4 g/dl (32.0-36.0); PLATELET COUNT 272 10^3/uL (134-434); RBC 4.44 M/mm3 (3.60-5.2); RDW 13.4 % (11.6-15.6); WHITE BLOOD COUNT 7.1 K/mm3 (4.0-10.0)
[2023-03-01 12:08] LABS: POTASSIUM 4.2 mmol/L (3.5-5.1)
[2023-03-01 12:17] LABS: CREATININE 0.6 mg/dL (0.55-1.3)
[2023-03-01 12:18] LABS: ALBUMIN 2.9 g/dl (3.4-5.0); CALCIUM 8.6 mg/dL (8.5-10.1); TOT PROT 5.7 g/dl (6.4-8.2)
[2023-03-01 12:21] LABS: BILIRUBIN,TOTAL 0.2 mg/dL (0.2-1)
[2023-03-01] MEDS: THIAMINE HCL 100 MG TABLET (FP) PO SCH (22:15)
[2023-03-01] MEDS: MELATONIN 5 MG TABLETS PO PRN (22:15)
[2023-03-01] MEDS: ERYTHROMYCIN 0.5% OPHTHALMIC OINTMENT 3.5 GM TUBE OU SCH (22:16)
[2023-03-02] MEDS: LORazepam 2 MG TABLET PO SCH ×4 (05:51→22:19)
[2023-03-02] MEDS: levETIRAcetam 500 MG TABLET (FP) PO SCH ×2 (10:55→22:19)
[2023-03-02] MEDS: METHOCARBAMOL 500 MG TABLET PO PRN (10:57)
[2023-03-02] MEDS: PRENATAL VITAMINS W/ FOLIC ACID TABLET (FP) PO SCH (10:57)
[2023-03-02] MEDS: THIAMINE HCL 100 MG TABLET (FP) PO SCH (22:19)
[2023-03-02] MEDS: ERYTHROMYCIN 0.5% OPHTHALMIC OINTMENT 3.5 GM TUBE OU SCH (22:21)
[2023-03-02] MEDS: NICOTINE POLACRILEX 2 MG GUM BUC PRN (22:21)
[2023-03-03] MEDS: LORazepam 1 MG TABLET PO SCH ×3 (05:31→17:29)
[2023-03-03 09:59] VITALS: RESP 18
[2023-03-03] MEDS ORDERED: methaDONE HCL 10 MG TABLET (FOR DETOX USE ONLY) PO ONE (10:00)
[2023-03-03] MEDS: levETIRAcetam 500 MG TABLET (FP) PO SCH (10:19)
[2023-03-03] MEDS: PRENATAL VITAMINS W/ FOLIC ACID TABLET (FP) PO SCH (10:19)
[2023-03-03] MEDS: hydrOXYzine PAMOATE 25 MG CAPSULE (FP) PO PRN (11:09)
[2023-03-03 14:02] VITALS: TEMP 97.5
[2023-03-03] MEDS: NICOTINE POLACRILEX 2 MG GUM BUC PRN (17:30)
[2023-03-03 17:32] VITALS: BP 121/78; PULSE 86
[2023-03-04] MEDS ORDERED: LORazepam 0.5 MG TABLET PO PRN
[2023-03-04] MEDS ORDERED: LORazepam 0.5 MG TABLET PO SCH (05:00)
[2023-03-05] MEDS ORDERED: LORazepam 0.5 MG TABLET PO ONE (05:00)
[2023-03-05] MEDS ORDERED: methaDONE HCL 10 MG TABLET (FOR DETOX USE ONLY) PO ONE (10:00)
== END 2023-03-03 19:25 | disposition left against medical advice (07) | DRG 770 ==
LOC: YASAS 13:57 → Y6N 18:32 → UNDOADMIN 18:32
PROVIDERS: ADMIT Allergy & Immunology; ATTEND Surgery
PROC: HZ2ZZZZ Detoxification Services for Substance Abuse Treatment (ICD-10-PCS; principal; 2023-02-28)
DX: F11.23 Opioid dependence with withdrawal (principal); F13.230 Sedative, hypnotic or anxiolytic dependence with withdrawal, uncomplicated; F14.20 Cocaine dependence, uncomplicated; F12.20 Cannabis dependence, uncomplicated; F17.210 Nicotine dependence, cigarettes, uncomplicated; F41.9 Anxiety disorder, unspecified; F32.A Depression, unspecified; F43.10 Post-traumatic stress disorder, unspecified; Z28.310 Unvaccinated for COVID-19; Z28.9 Immunization not carried out for unspecified reason
CPT/HCPCS: 36415; 80053; 85027; 86780; 87635; 87811